=== PATIENT | female | born 1950 | race Caucasian/White ===

== ENCOUNTER 2019-01-08 11:58 | Inpatient (IN) | payer MEDICARE, OTHER ==
[2019-01-08 15:55] LABS: ADD MAN DIFF? NO
[2019-01-08 16:00] LABS: WHITE BLOOD COUNT 6.7 10^3/ul (4.8-10.8)
[2019-01-08 16:00] LABS: ABNORMAL IP MESSAGE 1; BASOPHILS % 0.3 % (0.0-2.0); EOSINOPHILS # 0.2 10^3/ul (0.0-0.5); EOSINOPHILS % 2.7 % (0.0-7.0); HEMATOCRIT 33.7 % (37.0-47.0); HEMOGLOBIN 9.4 g/dl (12.0-16.0); LYMPHOCYTES # 0.9 10^3/ul (0.8-2.9); LYMPHOCYTES % 13.3 % (15.0-51.0); MEAN CORPUSCULAR HEMOGLOBIN 25.1 pg (29.0-33.0); MEAN CORPUSCULAR HGB CONC 27.9 g/dl (32.0-37.0); MEAN CORPUSCULAR VOLUME 90.1 fl (82.0-101.0); MEAN PLATELET VOLUME 11.1 fl (7.4-10.4); MONOCYTE # 0.5 10^3/ul (0.3-0.9); MONOCYTES % 7.2 % (0.0-11.0); NEUTROPHIL # 5.1 10^3/ul (1.6-7.5); NEUTROPHILS % 76.4 % (39.0-77.0); PLATELET COUNT 247 10^3/UL (140-415); RED BLOOD COUNT 3.74 10^6/ul (4.20-5.40); RED CELL DISTRIBUTION WIDTH 15.9 % (11.5-14.5)
[2019-01-08] MEDS: ONDANSETRON 4 MG INJ IV (16:04)
[2019-01-08] MEDS: HYDROmorphONE 2 MG/ML SYG IV (16:04)
[2019-01-08 16:16] LABS: ANION GAP 9 (5-13); BLOOD UREA NITROGEN 18 mg/dl (7-20); CARBON DIOXIDE 25 mmol/L (21-31); CHLORIDE 107 mmol/L (97-110); CREATININE 1.42 mg/dl (0.44-1.00); Estimated GFR 37 mL/min (>60); GLUCOSE 96 mg/dl (70-220); SODIUM 141 mmol/L (135-144)
[2019-01-08 16:19] LABS: INR 1.27; PT RATIO 1.3
[2019-01-08 16:20] LABS: PARTIAL THROMBOPLASTIN TIME 31.9 Sec (23.0-35.0)
[2019-01-08 16:26] LABS: POTASSIUM 4.3 mmol/L (3.5-5.1)
[2019-01-08] MEDS: SOD CHLORIDE 0.9% 100 ML (16:31)
[2019-01-08] MEDS: IODIXANOL LOCM 100 ML BTL (16:31)
[2019-01-08] MEDS: CLINDAMYCIN 600 MG/D5W (PMX) 50 ML IVPB (18:11)
[2019-01-08] MEDS ORDERED: ONDANSETRON 4 MG INJ IV (19:00)
[2019-01-08] MEDS ORDERED: ACETAMINOPHEN 325 MG TAB PO ×2 (19:00→21:30)
[2019-01-08] MEDS ORDERED: VANCOMYCIN IV PER PHARMACY XX (21:30)
[2019-01-08] MEDS ORDERED: ALPRAZOLAM 1 MG TAB PO (21:30)
[2019-01-08] MEDS: CEFEPIME 1GM/50 ML (PMX) 50 ML IVPB (22:21)
[2019-01-08] MEDS: GABAPENTIN 300 MG CAP PO (22:24)
[2019-01-08] MEDS: APIXABAN 5 MG TABLET PO (22:25)
[2019-01-08] MEDS: HYDROCODONE/APAP (10/325) TAB PO (22:28)
[2019-01-08] MEDS: VANCOMYCIN HCL 2 GM in SOD CHLORIDE 0.9% 500 ML IVPB (23:29)
[2019-01-09] MEDS: HYDROCODONE/APAP (10/325) TAB PO ×2 (04:37→14:25)
[2019-01-09] MEDS: DIPHENHYDRAMINE 25 MG CAP PO ×3 (05:40→20:31)
[2019-01-09 07:26] LABS: ADD MAN DIFF? NO
[2019-01-09 07:33] LABS: ABNORMAL IP MESSAGE 1; BASOPHILS % 0.2 % (0.0-2.0); EOSINOPHILS # 0.2 10^3/ul (0.0-0.5); EOSINOPHILS % 4.1 % (0.0-7.0); HEMATOCRIT 28.4 % (37.0-47.0); HEMOGLOBIN 7.9 g/dl (12.0-16.0); LYMPHOCYTES # 1.1 10^3/ul (0.8-2.9); LYMPHOCYTES % 19.1 % (15.0-51.0); MEAN CORPUSCULAR HEMOGLOBIN 25.1 pg (29.0-33.0); MEAN CORPUSCULAR HGB CONC 27.8 g/dl (32.0-37.0); MEAN CORPUSCULAR VOLUME 90.2 fl (82.0-101.0); MEAN PLATELET VOLUME 12.1 fl (7.4-10.4); MONOCYTE # 0.5 10^3/ul (0.3-0.9); MONOCYTES % 8.8 % (0.0-11.0); NEUTROPHIL # 3.8 10^3/ul (1.6-7.5); NEUTROPHILS % 67.4 % (39.0-77.0); PLATELET COUNT 225 10^3/UL (140-415); RED BLOOD COUNT 3.15 10^6/ul (4.20-5.40)
[2019-01-09 07:33] LABS: WHITE BLOOD COUNT 5.6 10^3/ul (4.8-10.8)
[2019-01-09 07:35] LABS: POSITIVE DIFF @See below
[2019-01-09 07:57] LABS: ANION GAP 4 (5-13); BLOOD UREA NITROGEN 20 mg/dl (7-20); CALCIUM 8.3 mg/dl (8.4-10.2); CARBON DIOXIDE 26 mmol/L (21-31); CHLORIDE 108 mmol/L (97-110); CREATININE 1.29 mg/dl (0.44-1.00); Estimated GFR 41 mL/min (>60); GLUCOSE 83 mg/dl (70-220); SODIUM 138 mmol/L (135-144)
[2019-01-09] MEDS: GABAPENTIN 400 MG CAP PO ×2 (08:40→20:20)
[2019-01-09] MEDS: CLOPIDOGREL 75 MG TAB PO (08:40)
[2019-01-09] MEDS: APIXABAN 5 MG TABLET PO ×2 (08:41→20:20)
[2019-01-09] MEDS ORDERED: GABAPENTIN 300 MG CAP PO (09:00)
[2019-01-09] MEDS: EPOETIN ALFA-EPBX (NON-ESRD 10,000 UNIT/ML VIAL SC ×2 (17:33→18:32)
[2019-01-09] MEDS: CEFEPIME 1GM/50 ML (PMX) 50 ML IVPB (21:13)
[2019-01-09] MEDS: ZOLPIDEM 5 MG TAB PO (22:48)
[2019-01-09] MEDS: VANCOMYCIN 1.5 GM/NS 250 ML 250 ML IVPB (22:48)
[2019-01-09] MEDS: ALPRAZOLAM 0.5 MG TAB PO (22:57)
[2019-01-10] MEDS: HYDROCODONE/APAP (10/325) TAB PO ×4 (00:52→21:58)
[2019-01-10 05:24] LABS: ADD MAN DIFF? NO
[2019-01-10 05:34] LABS: ABNORMAL IP MESSAGE 1; BASOPHILS % 0.2 % (0.0-2.0); EOSINOPHILS # 0.2 10^3/ul (0.0-0.5); EOSINOPHILS % 4.1 % (0.0-7.0); HEMOGLOBIN 8.7 g/dl (12.0-16.0); LYMPHOCYTES % 16.6 % (15.0-51.0); MEAN CORPUSCULAR HEMOGLOBIN 25.1 pg (29.0-33.0); MEAN CORPUSCULAR HGB CONC 28.1 g/dl (32.0-37.0); MEAN CORPUSCULAR VOLUME 89.3 fl (82.0-101.0); MEAN PLATELET VOLUME 11.9 fl (7.4-10.4); MONOCYTE # 0.3 10^3/ul (0.3-0.9); NEUTROPHIL # 4.3 10^3/ul (1.6-7.5); NEUTROPHILS % 73.9 % (39.0-77.0); PLATELET COUNT 255 10^3/UL (140-415); RED BLOOD COUNT 3.47 10^6/ul (4.20-5.40); RED CELL DISTRIBUTION WIDTH 16.1 % (11.5-14.5)
[2019-01-10 05:34] LABS: WHITE BLOOD COUNT 5.8 10^3/ul (4.8-10.8)
[2019-01-10 05:40] LABS: POSITIVE DIFF @See below
[2019-01-10 06:16] LABS: ANION GAP 6 (5-13); BLOOD UREA NITROGEN 20 mg/dl (7-20); CARBON DIOXIDE 25 mmol/L (21-31); CHLORIDE 107 mmol/L (97-110); CREATININE 1.45 mg/dl (0.44-1.00); GLUCOSE 81 mg/dl (70-220); POTASSIUM 4.1 mmol/L (3.5-5.1); SODIUM 138 mmol/L (135-144)
[2019-01-10 06:17] LABS: CALCIUM 8.3 mg/dl (8.4-10.2); Estimated GFR 36 mL/min (>60)
[2019-01-10] MEDS: DIPHENHYDRAMINE 1%/ZINC 28.3 GM CR TOP (06:44)
[2019-01-10] MEDS: APIXABAN 5 MG TABLET PO ×2 (08:42→20:29)
[2019-01-10] MEDS: GABAPENTIN 400 MG CAP PO ×2 (08:42→20:29)
[2019-01-10] MEDS: CLOPIDOGREL 75 MG TAB PO (08:43)
[2019-01-10] MEDS: DIPHENHYDRAMINE 25 MG CAP PO (15:42)
[2019-01-10] MEDS: CEFAZOLIN 1 GM/50 ML (PMX) 50 ML IVPB (21:52)
[2019-01-10] MEDS: CLINDAMYCIN 900 MG (PMX) 50 ML IVPB (22:40)
[2019-01-10] MEDS: TEMAZEPAM 15 MG CAPSULE PO (23:57)
[2019-01-11] MEDS: CEFAZOLIN 1 GM/50 ML (PMX) 50 ML IVPB ×2 (05:21→13:22)
[2019-01-11 06:09] LABS: ANION GAP 6 (5-13); BLOOD UREA NITROGEN 23 mg/dl (7-20); CALCIUM 8.4 mg/dl (8.4-10.2); CARBON DIOXIDE 25 mmol/L (21-31); CHLORIDE 107 mmol/L (97-110); CREATININE 1.54 mg/dl (0.44-1.00); Estimated GFR 34 mL/min (>60); GLUCOSE 90 mg/dl (70-220); POTASSIUM 4.2 mmol/L (3.5-5.1); SODIUM 138 mmol/L (135-144)
[2019-01-11] MEDS: CLINDAMYCIN 900 MG (PMX) 50 ML IVPB ×3 (06:24→21:24)
[2019-01-11] MEDS: APIXABAN 5 MG TABLET PO ×2 (08:07→21:24)
[2019-01-11] MEDS: CLOPIDOGREL 75 MG TAB PO (08:07)
[2019-01-11] MEDS: GABAPENTIN 400 MG CAP PO ×2 (08:07→21:24)
[2019-01-11] MEDS: DIPHENHYDRAMINE 25 MG CAP PO (08:08)
[2019-01-11] MEDS: HYDROCODONE/APAP (10/325) TAB PO ×3 (08:08→22:44)
[2019-01-11] MEDS: ONDANSETRON 4 MG INJ IV (14:00)
[2019-01-11] MEDS: TEMAZEPAM 15 MG CAPSULE PO (23:30)
[2019-01-12] MEDS: CLINDAMYCIN 900 MG (PMX) 50 ML IVPB ×3 (05:53→21:45)
[2019-01-12 06:21] LABS: ANION GAP 7 (5-13); BLOOD UREA NITROGEN 23 mg/dl (7-20); CALCIUM 8.4 mg/dl (8.4-10.2); CARBON DIOXIDE 25 mmol/L (21-31); CHLORIDE 106 mmol/L (97-110); Estimated GFR 38 mL/min (>60); GLUCOSE 105 mg/dl (70-220); POTASSIUM 4.2 mmol/L (3.5-5.1); SODIUM 138 mmol/L (135-144)
[2019-01-12] MEDS: HYDROCODONE/APAP (10/325) TAB PO ×3 (07:59→21:09)
[2019-01-12] MEDS: APIXABAN 5 MG TABLET PO ×2 (08:00→21:02)
[2019-01-12] MEDS: CLOPIDOGREL 75 MG TAB PO (08:00)
[2019-01-12] MEDS: GABAPENTIN 400 MG CAP PO ×2 (08:00→21:02)
[2019-01-12] MEDS: DIPHENHYDRAMINE 25 MG CAP PO ×2 (08:59→17:07)
[2019-01-12] MEDS: ALPRAZOLAM 0.5 MG TAB PO (21:02)
[2019-01-12] MEDS: EPOETIN ALFA-EPBX (NON-ESRD 10,000 UNIT/ML VIAL SC (21:08)
[2019-01-13] MEDS: CLINDAMYCIN 900 MG (PMX) 50 ML IVPB ×3 (05:41→22:21)
[2019-01-13 06:05] LABS: ANION GAP 6 (5-13); BLOOD UREA NITROGEN 24 mg/dl (7-20); CALCIUM 8.8 mg/dl (8.4-10.2); CARBON DIOXIDE 28 mmol/L (21-31); CHLORIDE 104 mmol/L (97-110); CREATININE 1.31 mg/dl (0.44-1.00); Estimated GFR 41 mL/min (>60); GLUCOSE 81 mg/dl (70-220); POTASSIUM 4.6 mmol/L (3.5-5.1); SODIUM 138 mmol/L (135-144)
[2019-01-13] MEDS: APIXABAN 5 MG TABLET PO ×2 (08:23→20:22)
[2019-01-13] MEDS: DIPHENHYDRAMINE 50 MG CAP PO ×2 (08:23→18:48)
[2019-01-13] MEDS: GABAPENTIN 400 MG CAP PO ×2 (08:23→20:22)
[2019-01-13] MEDS: CLOPIDOGREL 75 MG TAB PO (08:23)
[2019-01-13] MEDS: HYDROCODONE/APAP (10/325) TAB PO ×2 (08:24→18:48)
[2019-01-13] MEDS: ALPRAZOLAM 0.5 MG TAB PO (15:41)
[2019-01-13] MEDS: TEMAZEPAM 15 MG CAPSULE PO (23:50)
[2019-01-14] MEDS: HYDROCODONE/APAP (10/325) TAB PO ×4 (01:28→20:34)
[2019-01-14] MEDS: CLINDAMYCIN 900 MG (PMX) 50 ML IVPB ×3 (05:40→23:03)
[2019-01-14] MEDS: ALPRAZOLAM 0.5 MG TAB PO (05:44)
[2019-01-14] MEDS: GABAPENTIN 400 MG CAP PO ×2 (08:04→20:29)
[2019-01-14] MEDS: APIXABAN 5 MG TABLET PO ×2 (08:05→20:30)
[2019-01-14] MEDS: CLOPIDOGREL 75 MG TAB PO (08:05)
[2019-01-14] MEDS: morphine 2 MG INJ IV ×4 (11:47→23:55)
[2019-01-14] MEDS: TEMAZEPAM 15 MG CAPSULE PO (20:27)
[2019-01-14] MEDS: DIPHENHYDRAMINE 50 MG CAP PO (23:03)
[2019-01-15] MEDS: CLINDAMYCIN 900 MG (PMX) 50 ML IVPB ×3 (05:06→21:42)
[2019-01-15] MEDS: morphine 2 MG INJ IV ×5 (05:06→21:44)
[2019-01-15] MEDS: HYDROCODONE/APAP (10/325) TAB PO ×2 (08:34→19:38)
[2019-01-15] MEDS: GABAPENTIN 400 MG CAP PO ×2 (08:47→19:44)
[2019-01-15] MEDS: APIXABAN 5 MG TABLET PO ×2 (08:47→19:44)
[2019-01-15] MEDS: CLOPIDOGREL 75 MG TAB PO (08:47)
[2019-01-15] MEDS: TEMAZEPAM 15 MG CAPSULE PO (23:31)
[2019-01-16] MEDS: morphine 2 MG INJ IV ×3 (02:31→15:03)
[2019-01-16 04:54] LABS: ADD MAN DIFF? NO
[2019-01-16 04:57] LABS: WHITE BLOOD COUNT 7.7 10^3/ul (4.8-10.8)
[2019-01-16 04:57] LABS: ABNORMAL IP MESSAGE 1; BASOPHILS % 0.4 % (0.0-2.0); EOSINOPHILS # 0.3 10^3/ul (0.0-0.5); EOSINOPHILS % 3.4 % (0.0-7.0); HEMATOCRIT 31.1 % (37.0-47.0); HEMOGLOBIN 8.7 g/dl (12.0-16.0); LYMPHOCYTES # 1.7 10^3/ul (0.8-2.9); LYMPHOCYTES % 22.7 % (15.0-51.0); MEAN CORPUSCULAR HEMOGLOBIN 24.6 pg (29.0-33.0); MEAN CORPUSCULAR VOLUME 88.1 fl (82.0-101.0); MEAN PLATELET VOLUME 11.9 fl (7.4-10.4); MONOCYTE # 0.6 10^3/ul (0.3-0.9); NEUTROPHILS % 65.1 % (39.0-77.0); PLATELET COUNT 288 10^3/UL (140-415); RED BLOOD COUNT 3.53 10^6/ul (4.20-5.40); RED CELL DISTRIBUTION WIDTH 16.5 % (11.5-14.5)
[2019-01-16 05:04] LABS: POSITIVE DIFF @See below
[2019-01-16] MEDS: HYDROCODONE/APAP (10/325) TAB PO ×2 (05:07→11:54)
[2019-01-16 05:21] LABS: ANION GAP 5 (5-13); BLOOD UREA NITROGEN 23 mg/dl (7-20); CARBON DIOXIDE 29 mmol/L (21-31); CHLORIDE 103 mmol/L (97-110); CREATININE 1.28 mg/dl (0.44-1.00); Estimated GFR 42 mL/min (>60); GLUCOSE 96 mg/dl (70-220); POTASSIUM 5.1 mmol/L (3.5-5.1); SODIUM 137 mmol/L (135-144)
[2019-01-16] MEDS: CLINDAMYCIN 900 MG (PMX) 50 ML IVPB ×2 (05:31→14:19)
[2019-01-16] MEDS: GABAPENTIN 400 MG CAP PO (09:01)
[2019-01-16] MEDS: CLOPIDOGREL 75 MG TAB PO (09:01)
[2019-01-16] MEDS: APIXABAN 5 MG TABLET PO (09:02)
[2019-01-16] MEDS: EPOETIN ALFA-EPBX (NON-ESRD 10,000 UNIT/ML VIAL SC (17:43)
== END 2019-01-16 18:05 | disposition home health service (06) | DRG 600 ==
LOC: E/R 11:58 → 2NE 18:56
DX: N61.0 Mastitis without abscess (principal); L03.114 Cellulitis of left upper limb; I82.B12 Acute embolism and thrombosis of left subclavian vein; Z68.43 Body mass index [BMI] 50.0-59.9, adult; I48.92 Unspecified atrial flutter; I48.0 Paroxysmal atrial fibrillation; Z79.01 Long term (current) use of anticoagulants; G62.9 Polyneuropathy, unspecified; I25.10 Atherosclerotic heart disease of native coronary artery without angina pectoris; Z79.02 Long term (current) use of antithrombotics/antiplatelets; Z95.0 Presence of cardiac pacemaker; E66.01 Morbid (severe) obesity due to excess calories
CPT/HCPCS: 71260; 71275; 76641; 80048; 85025; 85610; 85730; 87081; 93971; 96365; 96375; 97161; 99285-25

== ENCOUNTER 2019-01-19 14:48 | Observation (INO) | payer MEDICARE ==
[2019-01-19] MEDS: HYDROmorphONE 1 MG/ML SYG IV (15:45)
[2019-01-19] MEDS: NITROGLYCERIN 2% 1 GM OINT PKT TD (15:45)
[2019-01-19] MEDS: ASPIRIN 325 MG TAB PO (15:45)
[2019-01-19] MEDS: ONDANSETRON 4 MG INJ IV (15:45)
[2019-01-19 15:49] LABS: ADD MAN DIFF? NO
[2019-01-19 15:50] LABS: WHITE BLOOD COUNT 9.1 10^3/ul (4.8-10.8)
[2019-01-19 15:50] LABS: BASOPHILS % 0.4 % (0.0-2.0); EOSINOPHILS % 2.5 % (0.0-7.0); HEMATOCRIT 32.1 % (37.0-47.0); LYMPHOCYTES % 13.5 % (15.0-51.0); MEAN CORPUSCULAR HEMOGLOBIN 24.8 pg (29.0-33.0); MEAN CORPUSCULAR VOLUME 88.4 fl (82.0-101.0); MEAN PLATELET VOLUME 12.1 fl (7.4-10.4); MONOCYTES % 8.4 % (0.0-11.0); NEUTROPHIL # 6.8 10^3/ul (1.6-7.5); NEUTROPHILS % 74.9 % (39.0-77.0); PLATELET COUNT 298 10^3/UL (140-415); RED BLOOD COUNT 3.63 10^6/ul (4.20-5.40); RED CELL DISTRIBUTION WIDTH 16.3 % (11.5-14.5)
[2019-01-19 15:51] LABS: ABNORMAL IP MESSAGE 1; EOSINOPHILS # 0.2 10^3/ul (0.0-0.5); LYMPHOCYTES # 1.2 10^3/ul (0.8-2.9); MONOCYTE # 0.8 10^3/ul (0.3-0.9)
[2019-01-19 15:56] LABS: POSITIVE DIFF @See below
[2019-01-19 16:15] LABS: ALANINE AMINOTRANSFERASE 27 IU/L (13-69); ALBUMIN 3.5 g/dl (3.3-4.9); ALBUMIN/GLOBULIN RATIO 0.94; ALKALINE PHOSPHATASE 114 IU/L (42-121); ANION GAP 5 (5-13); ASPARTATE AMINO TRANSFERASE 25 IU/L (15-46); BILIRUBIN,INDIRECT 0.4 mg/dl (0-1.1); BILIRUBIN,TOTAL 0.4 mg/dl (0.2-1.3); BLOOD UREA NITROGEN 30 mg/dl (7-20); CALCIUM 8.8 mg/dl (8.4-10.2); CARBON DIOXIDE 26 mmol/L (21-31); CHLORIDE 105 mmol/L (97-110); CREATININE 1.66 mg/dl (0.44-1.00); Estimated GFR 31 mL/min (>60); GLUCOSE 121 mg/dl (70-220); POTASSIUM 5.5 mmol/L (3.5-5.1); SODIUM 136 mmol/L (135-144); TOTAL PROTEIN 7.2 g/dl (6.1-8.1)
[2019-01-19 16:26] LABS: TROPONIN-I < 0.012 ng/ml (0.000-0.120)
[2019-01-19] MEDS ORDERED: ONDANSETRON 4 MG INJ IV (16:30)
[2019-01-19] MEDS ORDERED: ACETAMINOPHEN 325 MG TAB PO ×2 (16:30→23:00)
[2019-01-19] MEDS: HYDROCODONE/APAP (10/325) TAB PO (19:28)
[2019-01-19] MEDS: HYDROmorphONE 0.5 MG/0.5 ML SYG IV (22:35)
[2019-01-19] MEDS ORDERED: HYDROCODONE/APAP (10/325) TAB PO (23:00)
[2019-01-19] MEDS ORDERED: NITROGLYCERIN (SL) 0.4 MG TAB SL (23:00)
[2019-01-19] MEDS ORDERED: ALPRAZOLAM 0.25 MG TAB PO (23:00)
[2019-01-20] MEDS: DIPHENHYDRAMINE 50 MG INJ IV (00:33)
[2019-01-20] MEDS: HYDROCODONE/APAP (10/325) TAB PO ×4 (05:14→22:30)
[2019-01-20] MEDS: NITROGLYCERIN 2% 1 GM OINT PKT TD ×3 (06:00→22:00)
[2019-01-20 07:03] LABS: TROPONIN-I < 0.012 ng/ml (0.000-0.120)
[2019-01-20 07:06] LABS: CHOL/HDL RATIO 4.8 RATIO; HDL CHOLESTEROL 35 mg/dl (35-98); LDL CHOLESTEROL,CALCULATED 102 mg/dl; TRIGLYCERIDES 163 mg/dl (0-149)
[2019-01-20 07:06] LABS: CHOLESTEROL 170 mg/dl (100-200)
[2019-01-20] MEDS: CLINDAMYCIN 300 MG CAP PO ×5 (07:15→23:25)
[2019-01-20] MEDS: PANTOPRAZOLE (EC) 40 MG TAB PO (07:15)
[2019-01-20] MEDS: GABAPENTIN 400 MG CAP PO ×2 (08:12→22:28)
[2019-01-20] MEDS: CLOPIDOGREL 75 MG TAB PO (08:12)
[2019-01-20] MEDS: APIXABAN 5 MG TABLET PO ×2 (08:12→22:28)
[2019-01-20] MEDS: METOPROLOL 50 MG TAB PO (08:16)
[2019-01-20] MEDS: AMLODIPINE 10 MG TAB PO (08:16)
[2019-01-20] MEDS: EPOETIN ALFA-EPBX (NON-ESRD 10,000 UNIT/ML VIAL SC (08:20)
[2019-01-20] MEDS ORDERED: TEMAZEPAM XX (12:30)
[2019-01-20 13:04] LABS: TROPONIN-I < 0.012 ng/ml (0.000-0.120)
[2019-01-20] MEDS: ATORVASTATIN 80 MG TAB PO (22:27)
[2019-01-20] MEDS: PATIENT'S OWN MEDICATION PO (23:21)
[2019-01-21] MEDS: CLINDAMYCIN 300 MG CAP PO ×4 (05:34→23:15)
[2019-01-21] MEDS: HYDROCODONE/APAP (10/325) TAB PO ×4 (05:36→20:24)
[2019-01-21] MEDS: NITROGLYCERIN 2% 1 GM OINT PKT TD ×3 (05:46→22:00)
[2019-01-21] MEDS: APIXABAN 5 MG TABLET PO ×2 (08:39→20:15)
[2019-01-21] MEDS: GABAPENTIN 400 MG CAP PO ×2 (08:40→20:15)
[2019-01-21] MEDS: AMLODIPINE 10 MG TAB PO (08:40)
[2019-01-21] MEDS: METOPROLOL 50 MG TAB PO (08:41)
[2019-01-21] MEDS: PANTOPRAZOLE (EC) 40 MG TAB PO (08:42)
[2019-01-21] MEDS: CLOPIDOGREL 75 MG TAB PO (08:42)
[2019-01-21] MEDS: ONDANSETRON 4 MG INJ IV ×3 (08:46→20:15)
[2019-01-21] MEDS: REGADENOSON 0.4 MG/5 ML SYG (10:05)
[2019-01-21] MEDS: DIPHENHYDRAMINE 50 MG INJ IV ×2 (11:59→20:26)
[2019-01-21] MEDS ORDERED: ONDANSETRON (ODT) 4 MG TAB ODT (18:00)
[2019-01-21] MEDS: ATORVASTATIN 80 MG TAB PO (20:15)
[2019-01-21] MEDS: PATIENT'S OWN MEDICATION PO (23:14)
[2019-01-22] MEDS: HYDROCODONE/APAP (10/325) TAB PO ×3 (01:45→12:00)
[2019-01-22] MEDS: ONDANSETRON 4 MG INJ IV (01:47)
[2019-01-22] MEDS: NITROGLYCERIN 2% 1 GM OINT PKT TD ×2 (06:00→14:00)
[2019-01-22] MEDS: PANTOPRAZOLE (EC) 40 MG TAB PO (06:59)
[2019-01-22] MEDS: CLINDAMYCIN 300 MG CAP PO ×2 (06:59→11:59)
[2019-01-22] MEDS: CLOPIDOGREL 75 MG TAB PO (08:16)
[2019-01-22] MEDS: GABAPENTIN 400 MG CAP PO (08:17)
[2019-01-22] MEDS: APIXABAN 5 MG TABLET PO (08:17)
[2019-01-22] MEDS: METOPROLOL 50 MG TAB PO (08:18)
[2019-01-22] MEDS: AMLODIPINE 10 MG TAB PO (08:18)
== END 2019-01-22 18:27 | disposition home or self-care (01) ==
LOC: E/R 14:48 → 6WM 16:30
DX: R07.89 Other chest pain (principal); G89.29 Other chronic pain; M54.9 Dorsalgia, unspecified; I12.9 Hypertensive chronic kidney disease with stage 1 through stage 4 chronic kidney disease, or unspecified chronic kidney disease; N18.9 Chronic kidney disease, unspecified; E66.01 Morbid (severe) obesity due to excess calories; Z68.42 Body mass index [BMI] 45.0-49.9, adult; L03.114 Cellulitis of left upper limb; N61.0 Mastitis without abscess; I25.10 Atherosclerotic heart disease of native coronary artery without angina pectoris; Z95.0 Presence of cardiac pacemaker; Z98.84 Bariatric surgery status; Z79.82 Long term (current) use of aspirin; D63.1 Anemia in chronic kidney disease; I48.92 Unspecified atrial flutter; E78.5 Hyperlipidemia, unspecified
CPT/HCPCS: 36415; 71045; 72072; 72100; 78452; 80053; 80061; 84443; 84484; 85025; 93005; 93017; 93306; 96374; 96375; 99217; 99285-25; G0378